=== PATIENT | male | born 1990 | race African-American/Black ===

== ENCOUNTER 2019-12-26 00:23 | Emergency (ER) | payer SELFPAY ==
[~2019-12-26] VITALS: Ht 182.9 cm; Wt 65.8 kg
--- NOTE | 2019-12-26 00:37 | NUR ---
AMBULATED TO ER BED 1
[2019-12-26 00:40] VITALS: BP 125/73
[2019-12-26] MEDS: IBUPROFEN 600 MG TAB PO ONE (01:01)
--- NOTE | 2019-12-26 01:22 | NUR ---
PT HAS MULTIPLE ABSCESSES ONE TO L WRIST, R ARMPIT, 3 L THIGH, AND 1 L GROIN. NO DRAINING TO ANY, MILD SWELLING. PT STATES PAIN 4/10. PT AFEBRILE. BED SITTING AT BEDSIDE NKA HX - LEUKEMIA
[2019-12-26 01:37] VITALS: BP 125/73
--- NOTE | 2019-12-26 01:38 | NUR ---
Patient discharged with v/s stable. Written and verbal after care instructions given and explained. Patient alert, oriented and verbalized understanding of instructions. Ambulatory with steady gait. All questions addressed prior to discharge. ID band removed. Patient advised to follow up with PMD. Rx of IBUPROFEN, KEFLEX, BACTRIM, AND HIBICLENS given. Patient educated on indication of medication including possible reaction and side effects. Opportunity to ask questions provided and answered.
== END 2019-12-26 01:37 | disposition home or self-care (01) ==
LOC: MED 00:23
DX: L02.91 Cutaneous abscess, unspecified (principal); C95.90 Leukemia, unspecified not having achieved remission; Z94.81 Bone marrow transplant status
CPT/HCPCS: 99283

== ENCOUNTER 2021-02-19 15:38 | Emergency (ER) | payer MEDICAID ==
[~2021-02-19] VITALS: Ht 182.9 cm; Wt 70.3 kg
[2021-02-19 15:47] VITALS: BP 133/95
[2021-02-19] MEDS ORDERED: NACL 0.9% 1,000 ML IV ONE (16:00)
--- NOTE | 2021-02-19 16:16 | NUR ---
PT C/O GENERALIZED WEAKNESS, SOB S/P METH USE 3 HOURS AGO. STACH ON MONITOR.
--- NOTE | 2021-02-19 18:04 | NUR ---
PT VERBALIZES DC INSTRUCTIONS. IV REMOVED NO ACTIVE BLEEDING NO ACUTE DISTRESS NOTED. STABLE ON DC
--- NOTE | 2021-02-19 19:01 | NUR ---
PT VERBALIZES DC INSTRUCTIONS. IV REMOVED NO ACTIVE BLEEDING. NO ACUTE DISTRESS NOTED. STABLE ON DC
[2021-02-19 19:02] VITALS: BP 118/70
== END 2021-02-19 19:01 | disposition home or self-care (01) ==
LOC: MED 15:38
DX: F15.10 Other stimulant abuse, uncomplicated (principal); R00.0 Tachycardia, unspecified
CPT/HCPCS: 93005; 96360; 99283; J7030